=== PATIENT | female | born 1995 | race Caucasian/White ===

== ENCOUNTER 2017-08-17 12:30 | Emergency (ER) | payer BC ==
[2017-08-17] MEDS ORDERED: Aspirin Low Dose CHEW TAB* 81 MG PO ONE (12:55)
[2017-08-17 13:36] LABS: Hematocrit 29 % (35-47); Hemoglobin 9.5 g/dl (12.0-16.0); Mean Corpuscular HGB Conc 33 g/dl (31-36); Mean Corpuscular Hemoglobin 27 pg (27-31); Mean Corpuscular Volume 82 fL (80-97); Mean Platelet Volume 8 um3 (7.4-10.4); Red Blood Count 3.52 10^6/ul (4.0-5.4); Red Cell Distribution Width 15 % (10.5-15); White Blood Count 9.8 10^3/ul (3.5-10.8)
[2017-08-17 13:38] LABS: BUN/Creatinine Ratio 8.8 (8-20); Calcium 9.3 mg/dL (8.6-10.3); EGFR African American 172.2 (>60); EGFR Non-African American 133.9 (>60); Globulin 3.8 g/dL (2-4); Magnesium 1.7 mg/dL (1.9-2.7); Potassium 3.8 mmol/L (3.5-5.0); Total Bilirubin 0.3 mg/dL (0.2-1.0); Total Protein 7.8 g/dL (6.4-8.9)
--- NOTE | 2017-08-17 13:58 | RAD ---
Indication: Chest pain. 2 views of the chest including dual energy PA views demonstrate no mediastinal shift. Heart is of normal size and configuration. Lung becerra are clear. No prior study is available for comparison. IMPRESSION: No active cardiopulmonary disease is noted.
[2017-08-17 14:20] LABS: TSH (Thyroid Stimulating Horm) 2.12 mcIU/mL (0.34-5.60)
[2017-08-17 14:49] VITALS: BP 104/57
--- NOTE | 2017-08-18 22:19 | ED ---
Krishan Hanna Alfonso scribed for Sumit Sam MD on 08/17/17 at 1312 . Shortness of Breath - HPI Summary HPI Summary: This patient is a 21 year old F presenting to [facility] with a chief complaint of SOB since yesterday, worse since earlier today. She switched BCP type one month ago. The patient rates the pain 0/10 in severity. Symptoms aggravated by exertion. Symptoms alleviated by nothing. Patient reports stabbing CP (right sided, sudden onset earlier today, and radiates to her back). Patient denies fever, chills, and rash. She denies recent travels, illness, surgeries, and being in a car longer than an hour. She denies a change in physical activity. Menstrual cycle due today or tomorrow. - History of Current Complaint Chief Complaint: EDGeneral Time Seen by Provider: 08/17/17 12:58 Hx Obtained From: Patient Onset/Duration: Lasting Days - yesterday, Still Present, Worse Since - earlier today Timing: Constant Aggrevating Factors: Other - Exertion Alleviating Factors: Nothing Associated Signs & Symptoms: Chest Pain Unrelated to Cough PMH/Surg Hx/FS Hx/Imm Hx Opthamlomology History: Denies: Hx Legally Blind EENT History: Denies: Hx Deafness - Surgical History Surgery Procedure, Year, and Place: no Infectious Disease History: No Infectious Disease History: Denies: Traveled Outside the [place] in Last 30 Days - Family History Known Family History: Positive: Other - Negative PE Negative: Cardiac Disease - Social History Occupation: Student Alcohol Use: unknown frequency of alcohol intake Hx Substance Use: Yes Substance Use Type: Reports: Marijuana Substance Use Comment - Amount & Last Used: unknown Smoking Status (MU): Unknown if Ever Smoked Review of Systems Negative: Fever, Chills Negative: Erythema Negative: Sore Throat Positive: Chest Pain Positive: Shortness Of Breath. Negative: Cough Negative: Abdominal Pain, Vomiting, Nausea Negative: dysuria, hematuria Negative: Myalgia, Edema Negative: Rash Neurological: Other - Negative dizziness All Other Systems Reviewed And Are Negative: Yes Physical Exam - Summary Physical Exam Summary: Constitutional: Well-developed, Well-nourished, Alert. (-) Distressed Skin: Warm, Dry HENT: Normocephalic; Atraumatic Eyes: Conjunctiva normal Neck: Musculoskeletal ROM normal neck. (-) JVD, (-) Stridor, (-) Tracheal deviation Cardio: Rhythm regular, rate normal, Heart sounds normal; Intact distal pulses; The pedal pulses are 2+ and symmetric. Radial pulses are 2+ and symmetric. (-) Murmur Pulmonary/Chest wall: Effort normal. (-) Respiratory distress, (-) Wheezes, (-) Rales Abd: Soft, (-) Tenderness, (-) Distension, (-) Guarding, (-) Rebound Musculoskeletal: (-) Edema, Tenderness at 5th Costochondral junction which exactly reproduces her pain Lymph: (-) Cervical adenopathy Neuro: Alert, Oriented x3 Psych: Mood and affect Normal Triage Information Reviewed: Yes Vital Signs On Initial Exam: Initial Vitals Temp Pulse Resp BP Pulse Ox 98.7 F 66 18 110/70 98 08/17/17 12:40 08/17/17 12:40 08/17/17 12:40 08/17/17 12:40 08/17/17 12:40 Vital Signs Reviewed: Yes Diagnostics - Vital Signs Vital Signs Temp Pulse Resp BP Pulse Ox 08/17/17 12:40 98.7 F 66 18 110/70 98 - Laboratory Result Diagrams: 08/17/17 13:15 08/17/17 13:15 Lab Statement: Any lab studies that have been ordered have been reviewed, and results considered in the medical decision making process. - Radiology CXR Radiology Interpretation Completed By: Radiologist - No active cardiopulmonary disease is noted. ED physician has reviewed this radiology report and agrees. - EKG 1313 Cardiac Rate: NL EKG Rhythm: Sinus Rhythm - 70 BPM EKG Interpretation: No STEMI Re-Evaluation - Re-Evaluation First Eval Re-Evaluation Time: 14:50 Comment: Will obtain oximetry ambulatory prior to disposition. Lung sounds still clear. Patient states the SOB was related to pain. Course/Dx - Course Assessment/Plan: This patient is a 21 year old F presenting to [facility] with a chief complaint of SOB since yesterday, worse since earlier today. She switched BCP type one month ago. The patient rates the pain 0 /10 in severity. Symptoms aggravated by exertion. Symptoms alleviated by nothing. Patient reports stabbing CP (right sided, sudden onset earlier today, and radiates to her back). Patient denies fever, chills, and rash. She denies recent travels, illness, surgeries, and being in a car longer than an hour. She denies a change in physical activity. Menstrual cycle due today or tomorrow. An EKG reveals Sinus Rhythm. CXR reveals, per radiologist, No active cardiopulmonary disease is noted. ED physician has reviewed this radiology report and agrees. D-Dimer negative. PE is ruled out. No suspicion for acute coronary syndrome. In the ED course the patient was given ASA. Patient will be discharged with follow up from PCP. The patient is agreeable with this plan. - Diagnoses Provider Diagnoses: Costochondral chest pain Discharge - Discharge Plan Condition: Stable Disposition: HOME Prescriptions: Naproxen TAB* [Naprosyn 250 mg TAB*] 500 mg PO Q8H PRN #30 tab PRN Reason: Pain - Moderate To Severe Patient Education Materials: Chest Wall Pain (ED) Referrals: [facility] [place] [facility] [Outside] - 3 Days Additional Instructions: TAKE OTC PAIN MEDICATION AND APPLY A HEATING PAD. RETURN TO THE EMERGENCY DEPARTMENT FOR CHANGING OR WORSENING SYMPTOMS. The documentation as recorded by the Krishan medeiros Alfonso accurately reflects the service I personally performed and the decisions made by , Sumit Sam MD.
== END 2017-08-17 14:58 | disposition home or self-care (01) ==
LOC: ED 12:30
DX: R07.82 Intercostal pain (principal)
CPT/HCPCS: 36415; 71020; 80053; 83605; 83735; 84443; 84484; 85025; 85379; 85730; 93005; 99282